=== PATIENT | female | born 1940 | race Caucasian/White ===

== ENCOUNTER 2021-09-02 23:50 | Emergency (ER) | payer BC ==
[~2021-09-02] VITALS: Ht 154.9 cm; Wt 84.1 kg
[2021-09-03] MEDS: LIDOCAINE/EPI/TETRACAINE TOPICAL GEL 3 ML. TP ONE (00:15)
--- NOTE | 2021-09-03 00:24 | PHYS DOC ---
Past Medical History Past Medical History: A-Fib, Hypertension General Adult EDM: Chief Complaint: LACERATION/AVULSION HPI: HPI: Patient is a 80 year old female with history of A. fib on Eliamosis presenting to the ED treatment evaluated after falling. Patient states she was trying to reach for her blanket, from standing position, she states she fell backwards and hit her back on her walker scratching her right forearm on the walkers handle. Patient denies any loss of consciousness, denies hitting her head on the ground. Denies any back pain, hip or lower extremity pain. She has a skin tear to the right forearm Review of Systems: Review of Systems: Constitutional: Denies fever or chills. [] Eyes: Denies change in visual acuity. [] HENT: Denies nasal congestion or sore throat. [] Respiratory: Denies cough or shortness of breath. [] Cardiovascular: Denies chest pain or edema. [] GI: Denies abdominal pain, nausea, vomiting, bloody stools or diarrhea. [] : Denies dysuria. [] Musculoskeletal: Denies back pain or joint pain. [] Integument: Reports right forearm skin tear Neurologic: Denies headache, focal weakness or sensory changes. [] Psychiatric: Denies depression or anxiety. [] Heart Score: C/O Chest Pain: N/A Risk Factors: Risk Factors: DM, Current or recent (<one month) smoker, HTN, HLP, family history of CAD, obesity. Risk Scores: Score 0 - 3: 2.5% MACE over next 6 weeks - Discharge Home Score 4 - 6: 20.3% MACE over next 6 weeks - Admit for Clinical Observation Score 7 - 10: 72.7% MACE over next 6 weeks - Early Invasive Strategies Current Medications: Current Medications Medications (Trade) Dose Ordered Sig/Cynthia Start Time Stop Time Status Last Admin Dose Admin Tetracaine/ Epinephrine/ Lidocaine (Let (Dsoh-[id number]) Gel) 9 ml 1X ONCE 09/03/21 00:15 09/03/21 00:16 UNV Physical Exam: PE: Constitutional: Well developed, well nourished, no acute distress, non-toxic appearance. [] HENT: Normocephalic, atraumatic, bilateral external ears normal, oropharynx moist, no oral exudates, nose normal. [] Eyes: PERRLA, EOMI, conjunctiva normal, no discharge. [] Neck: Normal range of motion, no tenderness, supple, no stridor. [] Cardiovascular:Heart rate regular rhythm, no murmur [] Lungs & Thorax: Bilateral breath sounds clear to auscultation [] Abdomen: Bowel sounds normal, soft, no tenderness, no masses, no pulsatile masses. [] Skin: Right distal ventral forearm with a skin tear approximately 10 x 5 cm. Range of motion is intact to the right forearm and right hand. 2 small abrasions noted on the right forearm proximal end Back: Abrasion to the mid and low back, no tenderness, no CVA tenderness. [] Extremities: No tenderness, no cyanosis, no clubbing, ROM intact, no edema. [] Neurologic: Alert and oriented X 3, normal motor function, normal sensory function, no focal deficits noted. Cranial nerves II through XII intact Psychologic: Affect normal, judgement normal, mood normal. [] EKG: EKG: [] Radiology/Procedures: Radiology/Procedures: [] Course & Med Decision Making: Course & Med Decision Making Pertinent Labs and Imaging studies reviewed. (See chart for details) This is a 80-year-old female patient presented to the ED today with right forearm skin tear. Patient scratched her right forearm on her walker's handle. She has refused CT of the head, neck, or any other imaging. Tetanus up-to-date, right forearm skin tear was cleaned, mupirocin applied to the area and covered with nonstick dressing. Wound care instructions provided. Follow- up with the wound clinic and PCP Jovan Disclaimer: Jovan Disclaimer: This electronic medical record was generated, in whole or in part, using a voice recognition dictation system. Departure Departure Impression: Primary Impression: Skin tear of right forearm without complication Qualified Codes: S51.811A - Laceration without foreign body of right forearm, initial encounter Additional Impression: Fall from standing Qualified Codes: W19.XXXA - Unspecified fall, initial encounter Disposition: HOME / SELF CARE / HOMELESS Condition: STABLE Referrals: MAURO CHÁVEZ MD Please contact [facility] wound clinic tomorrow morning and set up a follow-up appointment Patient Instructions: Skin Tear Care Additional Instructions: You have a skin tear to right forearm. Please apply mupirocin to the area twice a day for 10 days. You can wash the area once a day with regular soap and water. Keep it covered if it is bleeding or draining. Please follow-up with [facility] wound clinic. Call them in the morning and set up a follow-up appointment. KATERINA PRASAD APRN Sep 03, 2021 00:24
[2021-09-03 01:10] VITALS: BP 155/70
[2021-09-03] MEDS: MUPIROCIN 2 % OINTMENT 22GM TUBE. TP STA (01:22)
[2021-09-03] MEDS: DIPHTH,PERTUSS(ACELL),TET TOX 0.5 ML DISP.SYRIN. VAX IM ONE (01:23)
== END 2021-09-03 01:24 | disposition home or self-care (01) ==
LOC: ER 23:50
DX: S51.811A Laceration without foreign body of right forearm, initial encounter (principal); I48.91 Unspecified atrial fibrillation; I10 Essential (primary) hypertension; W18.09XA Striking against other object with subsequent fall, initial encounter; Y93.89 Activity, other specified; Y92.89 Other specified places as the place of occurrence of the external cause; Y99.8 Other external cause status
CPT/HCPCS: 90471; 90715; 99284-25